=== PATIENT | female | born 2000 | race Two or more races ===

== ENCOUNTER 2024-03-27 18:44 | Emergency (ER) | payer BC, OTHER ==
[~2024-03-27] VITALS: Ht 160 cm; Wt 68.2 kg
[2024-03-27] MEDS ORDERED: IBUP-1456 PO (21:44)
[2024-03-28] MEDS ORDERED: AMOX875T4 PO (01:04)
[2024-03-28 01:30] VITALS: BP 103/61; PULSE 56; RESP 16; TEMP 98.6; O2SAT 100
== END 2024-03-28 01:35 | disposition home or self-care (01) ==
LOC: ER 18:44
DX: G43.909 Migraine, unspecified, not intractable, without status migrainosus (principal); J32.9 Chronic sinusitis, unspecified
CPT/HCPCS: 70450; 81025